=== PATIENT | female | born 1935 | race Caucasian/White ===

== ENCOUNTER 2021-02-14 19:18 | Emergency (ER) | payer OTHER ==
[~2021-02-14] VITALS: Ht 170.2 cm; Wt 52.2 kg
--- NOTE | ~2021-02-14 | EMS ---
[address] [address] EMS Patient Care Report Name: EDENILSON LIVINGSTON Room #: REG ROSSANA Hernandez#: [id number] Admission: 02/14/21 Attend Phys: Discharge: Date of : 37 Report #: [id number] THIS REPORT FOR: //name// Report Transmitted: 02/14/2021 19:27 EMS Care Summary [facility] MED-ACT Incident [id number] @ 02/14/2021 18:36 Incident Location [address] [address] Patient EDENILSON LIVINGSTON Female, 85 Years 1935 Patient Address [address] [place] [address] Patient History Behavioral/Psychiatric Disorder,Anxiety,Edema, Patient Allergies No known allergies, Patient Medications Furosemide, Sertraline, Xanax, Memantine, Tylenol, Chief Complaint "She said that she was going to kill herself" Disposition Transported No Lights/[place] Dispatch Reason Psychiatric Problem/Abnormal Behavior/Suicide Attempt Transported To [facility] Narrative HISTORY: Upon EMS arrival the patient was sitting in a chair watching TV with the other residents and staff at her side. Staff stated prior to dinner this [facility] [address] [place] [address] EMS Patient Care Report Name: EDENILSON LIVINGSTON Room #: PREETHI Hernandez#: [id number] Admission: 02/14/21 Attend Phys: Discharge: Date of : 37 Report #: [id number] evening the patient became notably irritated and frustrated because her family had moved her into her current residence. Staff reported that the patient stated that she was going to kill herself, she stated, "I'm going to cut my throat with a knife". Staff said the patient made these statements three separate times. Family was contacted and they wanted the patient to be transported to the ED. Staff stated the patient is acting her normal mental status, they denied her having any recent history of SI, recent falls, illnesses, infections, change in medications, or known history of UTI's. The patient denied having any complaint. After talking with the patient she agreed to go to the ED with EMS. While en route the patient was asked if she remembered making the statements regarding harming herself, she stated, "I don't know" multiple times and gave the impression she was confused as to why she was going to the ED. TREATMENT: V/S monitored, a mask was placed on the patient, TEMP, BG, exams were repeated, the patient was put in the position of comfort. TRANSPORT: The patient stood and walked to the cot on her own power without difficulty, she moved to the ED bed on her own power without incident. DESTIATION: The patient was taken to [facility] ED room 9, report was given to the nursing staff. Initial Vitals @19:01P: 74,R: 16,BP: 121/60,SpO2: 98, @18:46P: 86,R: 16,BP: 138/70,Pain: 0/10,GCS: 14,Temp: 97.4F,Glucose: 156,SpO2: 96,Revised Trauma: 12, Assessments @18:49MENTAL:Confused,Person Oriented,SKIN:HEENT:Eyes: No Abnormalities,LUNG SOUNDS:ABDOMEN:PELVIS//GI:EXTREMITIES:PULSE:Radial: 2+ Normal,NEURO: Impression Suicidal Ideation Procedures @18:50Surgical Mask on PatientResponse: Unchanged Timeline 18:33,Call Received 18:33,Psap Call 18:36,Dispatched 18:36,En Route 18:41,On Scene 18:42,At Patient 18:46,BP: 138/70 M,PULSE: 86,RR: 16 R,SPO2: 96 Ox,ETCO2: ,B,PAIN: 0,GCS: [facility] [address] [address] EMS Patient Care Report Name: [facility] Room #: REG Fabrizio.#: [id number] Admission: 02/14/21 Attend Phys: Discharge: Date of : 37 Report #: [id number] 14, 18:50,Surgical Mask on Patient,Response: Unchanged 18:53,Depart Scene 19:01,BP: 121/60 M,PULSE: 74,RR: 16 R,SPO2: 98 Ox,ETCO2: ,BG: ,PAIN: ,GCS: , 19:15,At Destination 19:31,Call Closed Disclaimer v1.1 Copyright 2020 [employer] This EMS Care Summary contains data elements from the applicable legal record (which may be displayed differently). It is designed to provide pertinent information for the following purposes: continuity of care, clinical quality, and state data reporting. The complete legal record is available to ED staff and administrators of the receiving hospital in [employer] Patient Tracker. All data is provided "as is."
[2021-02-14 20:21] LABS: ABSOLUTE NEUTROPHILS 4.7 thou/uL (1.4-8.2); BASOPHILS 0.9 % (0.0-2.0); EOSINOPHILS 4.1 % (0.0-3.0); HEMOGLOBIN 12.2 gm/dL (12.0-15.0); MCH 30.2 pg (26.0-34.0); MCHC 33.7 g/dL (28.0-37.0); MCV 89.5 fL (80.0-100.0); MONOCYTES 15.7 % (1.0-8.0); PLATELET COUNT 234 thou/uL (150-400); POLYS 61.3 % (36.0-66.0); RBC 4.03 mil/uL (4.20-5.00); RDW 16.1 % (10.5-14.5); WBC 7.7 thou/uL (4.0-11.0)
[2021-02-14 20:33] LABS: CALCIUM 8.5 mg/dL (8.5-10.1); CREATININE 0.9 mg/dL (0.6-1.0); POTASSIUM 4.3 mmol/L (3.5-5.1)
[2021-02-14 20:39] LABS: URINE BILIRUBIN NEGATIVE (Negative); URINE BLOOD TRACE (Negative); URINE CLARITY CLEAR; URINE COLOR YELLOW; URINE GLUCOSE-RANDOM* NEGATIVE (Negative); URINE KETONES NEGATIVE (Negative); URINE NITRITE-REFLEX NEGATIVE (Negative); URINE PROTEIN (DIPSTICK) NEGATIVE (Negative); URINE SPECIFIC GRAVITY 1.015 (1.005-1.035); URINE UROBILINOGEN 0.2 E.U./dl (0.2-1.0)
[2021-02-14 20:39] LABS: ALBUMIN 3.2 g/dL (3.4-5.0); TOTAL BILIRUBIN 0.2 mg/dL (0.2-1.0); TOTAL PROTEIN 6.3 g/dL (6.4-8.2)
[2021-02-14 20:41] LABS: URINE LEUKOCYTES-REFLEX 1+ (Negative)
[2021-02-14 20:48] LABS: BACTERIA-REFLEX 1-9 Few /HPF (None Seen); CALCIUM OXALATE 0-3 Few /LPF (None Seen); CASTS None Seen /LPF (None Seen); MUCUS 0-3 Light strn/LPF (None Seen); SQUAMOUS 0-3 Few /LPF (0-3); URINE RBC 3-10 Few /HPF (NONE SEEN); URINE WBC-REFLEX 6-15 Few /HPF (0-5)
[2021-02-14 22:50] VITALS: BP 126/64
--- NOTE | 2021-02-15 07:26 | EKG ---
[place] [address] [address] [facility] [place] [address] ELECTROCARDIOGRAM REPORT Name: EDENILSON LIVINGSTON Room #: MY Hernandez#: [id number] Admission: 02/14/21 Attend Phys: Discharge: 02/15/21 Date of : 37 Report #: [id number] [facility] ED Test Date: 2021-02-14 Test Time: 19:40:21 Pat Name: EDENILSON LIVINGSTON Department: Patient ID: [id number]- Room: Gender: F Tape Sewer: SAEID : [id number] Requested By: Joseph Kim Order Number: [id number] MD: Bret Connelly Measurements Intervals [place] Rate: 88 P: 76 NH: 166 QRS: -28 QRSD: 135 T: 98 QT: 409 QTc: 495 Interpretive Statements Sinus rhythm Probable left atrial enlargement Left bundle branch block No previous ECG available for comparison Electronically Signed On 02-15-2021 7:26:05 CDT by Bret Connelly [email or web address] <ELECTRONICALLY SIGNED> By: Bret Connelly MD, [facility] 02/15/21725 39 39 Bret Connelly MD, FACC /EPI
== END 2021-02-15 03:52 | disposition home or self-care (01) ==
LOC: ER 19:18
PROVIDERS: Emergency Medicine
DX: F43.20 Adjustment disorder, unspecified (principal); Z20.822 Contact with and (suspected) exposure to COVID-19